=== PATIENT | male | born 1980 | race African-American/Black ===

== ENCOUNTER 2023-06-18 02:51 | Emergency (ER) | payer MEDICAID, OTHER ==
[~2023-06-18] VITALS: Ht 177.8 cm; Wt 80.0 kg
[2023-06-18 02:53] VITALS: O2SAT 100
[2023-06-18] MEDS: ONDANSETRON HCL 4MG/2ML INJ IV ONE (04:00)
[2023-06-18] MEDS: NEOMYCIN/BACITRACIN/POLYMYXIN OINT 14GM TOP ONE (04:00)
[2023-06-18] MEDS: TETANUS, DIPHTHERIA, PERTUSSIS VAC/PF 0.5ML (>10YR OLD) IM ONE (04:00)
[2023-06-18] MEDS: MORPHINE SULFATE 4 MG/ML INJ (FOR IV/IM USE) IV ONE (04:00)
[2023-06-18] MEDS: SODIUM CHLORIDE 0.9% 1,000 ML IV ONE (04:00)
[2023-06-18] MEDS ORDERED: HYDR-4001 MT (05:09)
[2023-06-18 08:23] VITALS: BP 133/85; PULSE 71; RESP 16; TEMP 98.4
== END 2023-06-18 08:26 | disposition home or self-care (01) ==
LOC: ER 02:51
DX: T22.212A Burn of second degree of left forearm, initial encounter (principal); T79.8XXA Other early complications of trauma, initial encounter; X12.XXXA Contact with other hot fluids, initial encounter; Y93.89 Activity, other specified; Y92.89 Other specified places as the place of occurrence of the external cause; Y99.8 Other external cause status
CPT/HCPCS: 90715; 90471; 96361; 96374; 96375; 99284; J2405; J2270; J7030; Z7610